=== PATIENT | female | born 1955 | race Caucasian/White ===

== ENCOUNTER 2016-08-11 16:41 | Outpatient (CLI) ==
[2015-10-27 00:24] VITALS: BMI 35.2
== END 2016-08-11 16:42 | disposition home or self-care (01) ==
LOC: CAR 16:41
PROVIDERS: ATTEND Internal Medicine Pulmonary Disease
DX: G47.33 Obstructive sleep apnea (adult) (pediatric) (principal)
CPT/HCPCS: 95811

== ENCOUNTER 2018-11-13 02:06 | Emergency (ER) | payer OTHER, BC ==
[2018-11-13 02:23] VITALS: BP 120/80; TEMP 97.6; BMI 33.3
--- NOTE | 2018-11-13 06:56 | ED.PDOC ---
General ED Provider: Dr. JATINDER HENDRICKS-ER Chief Complaint: Body Fluid Exposure Stated Complaint: i splashed blood in my eyes Time Seen by Physician: 02:10 Mode of Arrival: Walk-In Information Source: Patient Exam Limitations: No limitations Primary Care Provider: KATLYN IRVIN Nursing and Triage Documentation Reviewed and Agree: Yes Does patient meet sepsis criteria?: No System Inflammatory Response Syndrome: Not Applicable Sepsis Protocol: For patient's 13 years and over: Temp is 96.8 and below OR 101 and greater Pulse >90 BPM Resp >20/minute Acutely Altered Mental Status Are patient's symptoms suggestive of a new infection, such as: -Pneumonia -Skin, Soft Tissue -Endocarditis -UTI -Bone, Joint Infection -Implantable Device -Acute Abdominal Infection -Wound Infection -Meningitis -Blood Stream Catheter Infection -Unknown Miscellaneous Complaint Exam - Needlestick/Body Fluid Exposure Exam Patient Complains of: Body fluid exposure Contamination: Eye Date of Incident: 11/13 Needlestick: Reports: Other Bleeding at Site: No Body Fluid Exposure: Reports: Blood Treatment Prior to Arrival: Cleaned wound Prior Hepatitis B Vaccine: Yes Source Information: Denies: HIV, Hepatitis Discussed Post-Exposure Prophylaxis (PEP) for HIV: Denied Discussed PEP for Hepatitis-B: Denied Serologic Testing (HIV/HBV) Declined By Patient: No Differential Diagnoses: Body Fluid Exposure, Exposure Risk Low Review of Systems - Review Of Systems Constitutional: Reports: No symptoms Eyes: Reports: No symptoms Ears, Nose, Mouth, Throat: Reports: No symptoms Respiratory: Reports: No symptoms Cardiac: Reports: No symptoms GI: Reports: No symptoms : Reports: No symptoms Musculoskeletal: Reports: No symptoms Skin: Reports: No symptoms Neurological: Reports: No symptoms Endocrine: Reports: No symptoms Hematologic/Lymphatic: Reports: No symptoms All Other Systems: Reviewed and Negative Past Medical History - Past Medical History Previously Healthy: No Endocrine: Reports: None Cardiovascular: Reports: None Respiratory: Reports: None Hematological: Reports: None Gastrointestinal: Reports: None Genitourinary: Reports: None Neuro/Psych: Reports: None Musculoskeletal: Reports: None Cancer: Reports: None Last Menstrual Period: N/A - Surgical History General Surgical History: Reports: None - Family History Family History: Reports: None - Social History Smoking Status: Current every day smoker, Light tobacco smoker Hx Substance Use: No Alcohol Screening: None - Immunizations Tetanus Shot up to Date: No Physical Exam - Physical Exam Appearance: Well-appearing, No pain distress, Well-nourished Eyes: DAVID, EOMI, Conjunctiva clear ENT: Ears normal, Nose normal, Oropharynx normal Neck: Supple Respiratory: Airway patent, Breath sounds clear, Breath sounds equal, Respirations nonlabored Cardiovascular: RRR, Pulses normal, No rub, No murmur GI/: Soft, Nontender, No masses, Bowel sounds normal, No Organomegaly Musculoskeletal: Normal strength, ROM intact, No edema, No calf tenderness Skin: Warm, Dry, Normal color Neurological: Sensation intact, Motor intact, Reflexes intact, Cranial nerves intact, Alert, Oriented Psychiatric: Affect appropriate, Mood appropriate Critical Care Note - Critical Care Note Total Time (mins): 0 Course - Course Orders, Labs, Meds: Orders Category Date Time Status MISCELLANEOUS SEND OUT Stat LAB 11/13/18 02:43 Ordered Vital Signs: Temp Pulse Resp BP Pulse Ox 11/13/18 02:07 97.6 F 99 H 20 120/80 99 Departure - Departure Time of Disposition: 02:25 Disposition: HOME SELF-CARE 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
== END 2018-11-13 02:25 | disposition home or self-care (01) ==
LOC: ED 02:06
DX: Z77.21 Contact with and (suspected) exposure to potentially hazardous body fluids (principal); F17.210 Nicotine dependence, cigarettes, uncomplicated
CPT/HCPCS: 36415; 99283

== ENCOUNTER 2019-03-02 02:49 | Outpatient (CLI) | END 2019-03-02 02:50 | disposition home or self-care (01) | LOC: LAB 02:49 | PROVIDERS: ATTEND General Practice | DX: Z77.21 Contact with and (suspected) exposure to potentially hazardous body fluids (principal) | CPT/HCPCS: 36415; 87389 ==